=== PATIENT | female | born 1965 | race Caucasian/White ===

== ENCOUNTER 2020-06-25 06:10 | Day surgery (SDC) | payer OTHER ==
[2020-06-22 19:16] VITALS: BMI 17.5
[2020-06-25] MEDS ORDERED: DEXAMETHASONE SOD PHOSPHATE 4 MG/1 ML VIAL ONE (07:04)
[2020-06-25] MEDS ORDERED: LIDOCAINE HCL/PF 2% SDV 5ML VIAL ONE (07:04)
[2020-06-25] MEDS ORDERED: MIDAZOLAM HCL 2 MG/2 ML SINGLE DOSE VIAL ONE ×2 (07:04→07:29)
[2020-06-25] MEDS ORDERED: PROPOFOL 20 ML ONE ×4 (07:04→08:24)
[2020-06-25] MEDS ORDERED: EPHEDRINE SULFATE/0.9% NACL/PF 50 MG/10 ML SYRINGE NR ONE (07:06)
[2020-06-25] MEDS ORDERED: BUPIVACAINE HCL/PF 0.5% (5MG/ML) 10 ML VIAL ONE (07:21)
[2020-06-25] MEDS ORDERED: ceFAZolin SODIUM 1 GM VIAL ONE (07:52)
[2020-06-25] MEDS ORDERED: ONDANSETRON 4 MG/2 ML VIAL ONE (07:52)
[2020-06-25] MEDS ORDERED: KETOROLAC TROMETHAMINE 30 MG/1 ML VIAL ONE (07:52)
[2020-06-25] MEDS ORDERED: ONDANSETRON 4 MG/2 ML VIAL IVPUSH PRN (09:13)
[2020-06-25] MEDS ORDERED: oxyCODONE HCL 5 MG TABLET PO PRN ×2 (09:13)
[2020-06-25] MEDS ORDERED: LACTATED RINGERS SOLUTION 1,000 ML IV SCH (09:15)
[2020-06-25] MEDS ORDERED: PROMETHAZINE HCL 25 MG/1 ML VIAL ONE (09:37)
[2020-06-25] MEDS ORDERED: PROMETHAZINE HCL 25 MG/1 ML VIAL IVPUSH ONE (11:21)
--- NOTE | 2020-06-25 11:55 | OP ---
DATE OF OPERATION: 06/25/2020 PREOPERATIVE DIAGNOSIS: Right thumb ulnar collateral ligament tear. POSTOPERATIVE DIAGNOSIS: Right thumb ulnar collateral ligament tear. OPERATIVE PROCEDURE: Right thumb ulnar collateral ligament repair. SURGEON: Darnell Ro MD ANESTHESIA: General. COMPLICATIONS: None. ESTIMATED BLOOD LOSS: Minimal. TOUR CONSULTANT: GUNJAN Espinoza INDICATION FOR PROCEDURE: The patient is a 55-year-old female with the above finding indicated for operative treatment. Risks, benefits and alternatives were discussed with her at length and proper informed consent was obtained. PROCEDURE: After proper identification of patient and the correct operative site, patient was brought to the operating room and placed supine on the operating table. All prominences were well padded. General anesthesia was given. Right upper extremity was prepped and draped in the usual sterile fashion. A well-padded tourniquet was placed over the sterile prep. Esmarch bandage to exsanguinate the right upper extremity. Tourniquet was inflated to 250 mmHg. Curvilinear incision made over the ulnar aspect of the thumb metacarpophalangeal joint. Incision was taken sharply through the skin with blunt and sharp dissection for the subcutaneous tissues. The adductor aponeurosis was intact and was divided along its dorsal border and elevated off the collateral ligament. The collateral ligament was found to have a full-thickness tear off of the metacarpal neck. The proximal phalanx attachment was intact. An Arthrex 2.5-mm SwiveLock anchor was then placed into the metacarpal neck, loaded with a 3.0 FiberWire suture and a suture tape. The FiberWire was passed through the ligament to repair primarily to the metacarpal neck. The FiberTape was then placed over the repair for a ligament augmentation internal brace and secured on the proximal phalanx with a second 2.5-mm Arthrex SwiveLock anchor. This provided secure stable fixation of the repair with the augmentation in place. Full range of motion of the joint was achieved. Wound was irrigated and repaired in layers including the adductor aponeurosis with 4-0 Vicryl and 4-0 Monocryl as well as Steri-Strips. Sterile dressings and a thumb spica splint were placed. Patient was reversed from anesthesia and brought to the recovery room in stable condition. Misael Arce, the social media assistant, was integral throughout the procedure. The procedure could not have been performed without a skilled operative social media assistant. DARNELL RO M.D. [id number]
[2020-06-25 13:25] VITALS: TEMP 98.6
[2020-06-25 13:41] VITALS: BP 131/80; PULSE 73
== END 2020-06-25 12:30 | disposition home or self-care (01) ==
LOC: FASU 06:10
PROVIDERS: ATTEND Orthopaedic Surgery Hand Surgery
PROC: 0MQ70ZZ Repair Right Hand Bursa and Ligament, Open Approach (ICD-10-PCS; principal; 2020-06-25 08:07)
DX: S63.641A Sprain of metacarpophalangeal joint of right thumb, initial encounter (principal); X58.XXXA Exposure to other specified factors, initial encounter; Y93.9 Activity, unspecified; Y92.9 Unspecified place or not applicable
CPT/HCPCS: 94760